=== PATIENT | male | born 1995 | race Caucasian/White ===

== ENCOUNTER 2024-08-12 11:27 | Emergency (ER) | payer BC, OTHER, SELFPAY ==
[2024-08-12 11:54] VITALS: BP 154/91; PULSE 68; RESP 16; TEMP 36.4; O2SAT 97; BMI 29.8
--- NOTE | 2024-08-12 12:00 | ECG_ITS ---
Test Reason : electric shock Blood Pressure : */* mmHG Vent. Rate : 65 BPM Atrial Rate : 65 BPM P-R Int : 154 ms QRS Dur : 96 ms QT Int : 402 ms P-R-T Axes : 37 52 26 degrees QTcB Int : 418 ms Normal sinus rhythm Normal ECG No previous ECGs available Referred By: Hector Keita Electronically Signed By: NINA DILLON MD
--- NOTE | 2024-08-12 12:03 | ED_ITS ---
HPI - General Adult General Chief complaint: Burn/Smoke Inhalation Stated complaint: Work injury Time Seen by Provider: 08/12/24 13:07 Source: patient Mode of arrival: ambulatory Limitations: no limitations History of Present Illness ED Provider: Erica Stafford PA-C HPI narrative: 29-year-old male with no significant past medical history presenting to the ED after being shocked by power cord at work. 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 He reports the shock was minor and radiated up his forearm. Denies lightheadedness, dizziness, LOC, N/V, chest pain, shortness a breath, numbness, fall or trauma. Reports feels normal at this time. Onset (ago): hour(s) Location: upper extremity (R hand/arm) Radiation: non-radiation Associated symptoms: denies other symptoms Treatments prior to arrival: none Related Data Allergies Allergy/AdvReac Type Severity Reaction Status Date / Time No Known Allergies Allergy Verified 08/12/24 11:57 Review of Systems 2 Constitutional: Constitutional: Reports no additional constitutional complaints, Denies chills, Denies fever(s) and Denies night sweats Eyes: Eyes: Reports no additional eye complaints, Denies blurry vision, Denies change in vision, Denies diplopia, Denies eye discharge, Denies loss of vision and Denies eye pain ENT: Denies dizziness Cardiovascular: Cardiovascular: Reports no additional cardiovascular complaints, Denies chest pain, Denies lightheadedness, Denies Loss of Consciousness and Denies dyspnea Respiratory: Respiratory: Reports no additional respiratory complaints and Denies dyspnea Gastrointestinal: Gastrointestinal: Reports no additional gastrointestinal complaints and Denies abdominal pain Musculoskeletal: Musculoskeletal: Reports no additional musculoskeletal complaints, Denies numbness and Reports tingling Comments: Tingling sensation over R hand 2nd digit. Neurologic: Denies dizziness, Denies loss of vision, Denies numbness, Reports tingling and Reports paresthesias Psychiatric: Psychiatric: Reports no additional psychiatric complaints Endocrine: Endocrine: Reports no additional endocrine complaints Hematologic/Lymphatic: Hematologic/Lymphatic: Reports no additional hematologic/lymphatic complaints Allergic/Immunologic: Allergic/Immunologic: Reports no additional allergic/immunologic complaints PMFSH Past Medical History Attestation statement: The following information was validated with the patient. Source: old records reviewed and nursing notes reviewed Social History Social History Advance Directives: No Advance Directives Information Provided: Yes Physical Exam ED Vital Signs: Vital Signs - 24 hr 08/12/24 11:54 08/12/24 13:24 08/12/24 15:11 Temperature 97.6 F 98 F 98.2 F Pulse Rate 68 63 64 Respiratory Rate 16 16 16 Blood Pressure 154/91 H 143/88 H 150/86 H Pulse Oximetry 97 98 98 Oxygen Delivery Method Room Air Room Air Room Air BMI result Body Mass Index 29.8 Const General: cooperative, no acute distress, alert and awake Nutritional Appearance: well nourished Orientation/consciousness: patient oriented x3 Limitations: no limitations HENMT Head: Yes normal to inspection and Yes atraumatic Ears: hearing grossly normal bilaterally and external ears normal General nose exam: Normal external nose present, no nasal discharge noted and no epistaxis Face and sinus: Yes normal facial exam, No abrasion and No laceration Mouth: Normal oral and palatal mucosa present, no drooling and no muffled voice Eyes General: appearance normal, both eyes and all related structures Periorbital: periorbital findings normal Eyelids: Yes eyelids normal Conjunctivae: conjunctivae normal Pupils: Equal, round and reactive pupils present EOM: EOMs intact bilaterally Neck Neck: Yes normal visual inspection, Yes full ROM and Yes no lymphadenopathy Chest Chest palpation & inspection: normal inspection of the chest Resp Effort & Inspection: normal respiratory effort and able to speak in complete sentences GI Inspection: Yes normal to inspection Neuro General: patient oriented x3, moves all extremities and CN's II-XI intact bilaterally Cranial nerves: Yes Equal, round and reactive pupils present Cognition (Neuro): normal cognition Extrem Other: Right hand/forearm grossly normal to inspection, nontender to palpation, no ecchymosis/erythema/swelling, sensation intact, full range of motion General: Yes normal to inspection, Yes full ROM and Yes capillary refill normal Right upper extremity: full ROM, elbow/forearm and Extremity exam: right hand Psych Appearance: grossly normal Mental Status: mental status grossly normal Affect: normal affect Attitude: cooperative Thought process: Normal thought process present Thought content: Normal thought content present Insight: Good insight present (Psych) Course Course Course Narrative: RmE: 29-year-old male sent from work for electrical shock while unplugging from outlet. Patient states he works for [employer] and was unplugging a card from outlet and a small shock to in his right index and 3rd finger. Patient states shock was quick and did not involve his whole-body shaking only exposure was his 2nd and 3rd finger. Patient denies passing out or having any chest pain, shortness of breath, nausea, vomiting, or headache since incident. Patient states outlined voltage just less than 110. Patient was sent for evaluation. Patient is presently asymptomatic. Whole-body evaluated in triage negative for any reinoso. Patient denies any chest pain or shortness of breath. Patient is more low voltage shock. Unlikely patient has suffered from cardiac etiology but will do EKG labs CPK. Medical Decision Making Medical Decision Making [facility] Narrative: Patient is a 29 year old assigned male at with no reported medical history presenting to the emergency department today after an electrocution. Patient's physical exam was unremarkable. Patient's blood work was unremarkable. Patient's EKG was unremarkable. I explained my physical exam findings as well as all test results to the patient. I answered all questions asked by the patient. I stressed the importance of the patient taking his medication as directed (either prescribed or as the over the counter packaging recommends). I stressed the importance of the patient following up with his primary care provider and given this was a work place incident - work connection. I stressed the importance of the patient returning to the emergency department immediately if he were to develop any dizziness, shortness of breath, difficulty breathing, chest pain, blurry vision, loss of vision, nausea, vomiting, abdominal pain, fever, chills, back pain, or any other complaints. Patient verbalized agreement and understanding with this treatment plan and discharge. Differential Diagnosis Differential Diagnoses: The differential diagnosis associated with the presentation includes Electrocution Admission/Observation Consideration of admission/observation: Escalation of care including admission/observation considered Patient would have been admitted to the hospital had his work up had any findings where hospital admission was appropriate and his clinical presentation warranted hospital admission. Lab Data [facility] Lab Attestation statement: I reviewed the patient's lab results. My interpretation of these results are in the [facility] Rationale portion of this note. 08/12/24 12:11 08/12/24 12:11 Labs: Lab Results 08/12/24 08/12/24 Range/Units 12:11 14:14 WBC 5.6 (4.8-10.8) X10*3/uL RBC 4.63 (4.60-5.80) X10*6/uL Hgb 14.5 (14.0-18.0) g/dl Hct 42.4 (42.0-52.0) % MCV 91.6 (80.0-98.0) fL MCH 31.3 (27.0-33.0) pg MCHC 34.2 (31.0-36.0) g/dl RDW 12.1 (11.0-16.0) % Plt Count 269 (160-400) X10*3/uL MPV 8.9 L (9.4-12.4) fL Immature Gran % (Auto) 0.2 (0.0-0.4) % Neut % (Auto) 38.4 L (45-73) % Lymph % (Auto) 48.0 H (20-40) % Rankin % (Auto) 9.3 (2-11) % Eos % (Auto) 3.4 (0-4) % Baso % (Auto) 0.7 (0-2) % Lymph # (Auto) 2.7 (1.2-4.9) X10*3/uL Rankin # (Auto) 0.5 (0.1-1.2) X10*3/uL Eos # (Auto) 0.2 (0.0-0.4) X10*3/uL Baso # (Auto) 0.0 (0.0-0.2) X10*3/uL Abs Immat Gran (auto) 0.01 (0.00-0.03) X10*3/uL Absolute Neuts (auto) 2.2 (2.0-8.3) x10*3/uL Absolute Nucleated RBC 0.000 (0.0-0.012) X10*3/uL Nucleated RBC % (auto) 0.0 (0.0-0.2) /100WBC Sodium 139 (135-145) mmol/L Potassium 4.5 (3.3-5.1) mmol/L Chloride 107 (96-108) mmol/L Carbon Dioxide 26 (22-29) mmol/L Anion Gap 11 L (12-20) BUN 22 H (9-16) mg/dL Creatinine 0.99 (0.5-1.4) mg/dL Estim Creat Clear Calc 143.7 Estimated GFR > 60 Random Glucose 95 (60-115) mg/dL Calcium 10.1 (8.4-10.2) mg/dL Total Bilirubin 0.3 (0.0-1.0) mg/dL AST 36 (5-37) U/L ALT 34 (0-40) U/L Alkaline Phosphatase 89 (39-117) U/L Total Creatine Kinase 246 H (38-174) U/L Troponin I High Sens < 2.7 < 2.7 (<3.5-35.0) ng/L Total Protein 7.8 (6.5-8.0) g/dL Albumin 4.7 (3.5-5.0) g/dL Independent Interpretation I performed an independent interpretation of an: EKG Interpretation: I independently interpreted this EKG and am in agreement with the below findings: Vent. Rate: 65 BPM Atrial Rate: 65 BPM P-R Int: 154 ms QRS Dur: 96 ms QT Int: 402 ms P-R-T Axes: 37 52 26 degrees QTcB Int: 418 ms Normal sinus rhythm Normal ECG No previous ECGs available Electronically Signed By: MARLON DILLON MD Dictated By: Marlon Dillon MD Signed By: Electronically signed by Marlon Dillon MD 08/12/24 3016 Discharge Plan Discharge Clinical Impression: Electrocution Patient Disposition: Home, Self-Care Additional Instructions: Follow up with your primary care provider and given this was a work place injury - work connection. Return to the emergency department immediately if your symptoms worsen or if you develop any numbness, tingling, dizziness, shortness of breath, difficulty breathing, chest pain, blurry vision, loss of vision, nausea, vomiting, abdominal pain, fever, chills, back pain, or any other complaints. Please see the information below about our Patient Portal. If you are not yet enrolled in the [facility] Patient Portal, you will receive an enrollment email invitation following your visit to any [facility] care setting. You may also self-enroll in the Patient Portal by visiting our website: [email or web address] The following information is required to access the Patient Portal: - Your [facility] Medical Record Number - Your personal home email address (must match what is in your electronic medical record, Registration staff can assist with this) - Name - Date of Capabilities of the Patient Portal: - Message some providers - View upcoming appointments - Access your health summary, medical history, and visit history - View current conditions and allergies - View procedure and lab results - View your medications, including guidelines, side effects, and precautions - Complete pre-appointment questionnaires requested by your provider - Ready summary reports of your office visits and procedures To access the Patient Portal Mobile [employer], follow these directions: - Search [employer] in the [employer] Store or [employer] Store - Download the [employer] - Search for [facility] - Enter your login/password Referrals: [facility] [Provider Group] (Given this was a work place injury, please follow up with work connection. ) Codie Shannon NP [Primary Care Provider] - Stand Alone Forms: Work/School Release Interventions: ED Discharge Assessment Last Done: 08/12/24 15:11 Discharge Date/Time: 08/12/24 15:12 Print Language: Libyan
[2024-08-12 12:16] LABS: MANUAL DIFF FLAG NO
[2024-08-12 12:19] LABS: Basophils Percent Auto 0.7 % (0-2); Eosinophils Absolute Auto 0.2 X10*3/uL (0.0-0.4); Eosinophils Percent Auto 3.4 % (0-4); Hematocrit 42.4 % (42.0-52.0); Hemoglobin 14.5 g/dl (14.0-18.0); Imm Gran Abs Auto 0.01 X10*3/uL (0.00-0.03); Imm Gran Pct Auto 0.2 % (0.0-0.4); Lymphocytes Absolute Auto 2.7 X10*3/uL (1.2-4.9); Mean Corpuscular HGB Conc 34.2 g/dl (31.0-36.0); Mean Corpuscular Hemoglobin 31.3 pg (27.0-33.0); Mean Corpuscular Volume 91.6 fL (80.0-98.0); Mean Platelet Volume 8.9 fL (9.4-12.4); Monocytes Absolute Auto 0.5 X10*3/uL (0.1-1.2); Monocytes Percent Auto 9.3 % (2-11); Neutrophils Absolute Auto 2.2 x10*3/uL (2.0-8.3); Neutrophils Percent Auto 38.4 % (45-73); Platelet Count 269 X10*3/uL (160-400); Red Blood Count 4.63 X10*6/uL (4.60-5.80); Red Cell Distribution Width 12.1 % (11.0-16.0); White Blood Count 5.6 X10*3/uL (4.8-10.8)
[2024-08-12 12:39] LABS: Troponin-I High Sensitivity < 2.7 ng/L (<3.5-35.0)
[2024-08-12 12:44] LABS: Alanine Aminotransferase 34 U/L (0-40); Albumin Level 4.7 g/dL (3.5-5.0); Anion Gap 11 (12-20); Aspartate Amino Transferase 36 U/L (5-37); Bilirubin Total 0.3 mg/dL (0.0-1.0); Blood Urea Nitrogen 22 mg/dL (9-16); Calcium 10.1 mg/dL (8.4-10.2); Carbon Dioxide 26 mmol/L (22-29); Chloride 107 mmol/L (96-108); Creatinine Clr Calc Pharmacy 143.7; Estimated Glomerular Filt Rate > 60; Glucose Random 95 mg/dL (60-115); Potassium 4.5 mmol/L (3.3-5.1); Sodium 139 mmol/L (135-145); Total Protein 7.8 g/dL (6.5-8.0)
[2024-08-12 13:24] VITALS: BP 143/88; PULSE 63; RESP 16; TEMP 36.6; O2SAT 98
[2024-08-12 14:54] LABS: Troponin-I High Sensitivity < 2.7 ng/L (<3.5-35.0)
[2024-08-12 15:11] VITALS: BP 150/86; PULSE 64; RESP 16; TEMP 36.8; O2SAT 98
[2024-08-12 17:00] LABS: Alkaline Phosphatase 89 U/L (39-117)
== END 2024-08-12 15:12 | disposition home or self-care (01) ==
PROVIDERS: Physician Assistant; Emergency Provider Emergency Medicine; PCP Nurse Practitioner
DX: T75.4XXA Electrocution, initial encounter (principal); W86.8XXA Exposure to other electric current, initial encounter; Y93.9 Activity, unspecified; Y92.89 Other specified places as the place of occurrence of the external cause; Y99.0 Civilian activity done for income or pay
CPT/HCPCS: 36415; 80053; 82550; 84484; 85025; 93005; 99283; 99284

== ENCOUNTER → 2024-08-12 12:00 | Outpatient (BNV) | payer OTHER, SELFPAY | PROVIDERS: Emergency Provider Emergency Medicine; PCP Nurse Practitioner; Visit Provider Internal Medicine Cardiovascular Disease | DX: T75.4XXA Electrocution, initial encounter (principal) | CPT/HCPCS: 93010 ==